=== PATIENT | male | born 1960 | race African-American/Black ===

== ENCOUNTER 2018-11-27 05:26 | Emergency (ER) | payer SELFPAY ==
[~2018-11-27] VITALS: Ht 182.9 cm; Wt 117.9 kg
[~2018-11-27 05:26] MED LIST: NAPR-1009 PO; SULF500T8 PO
--- NOTE | 2018-11-27 05:30 | NUR ---
Pt. ambulated into ED w/ c/o migraine MARLOW since yesterday, denies visual defecits, denies dizziness, sensitivity to light noted, extremity strength equal bilat. - no defecits, denies CP/SOB/F/C/N/V,
--- NOTE | 2018-11-27 05:35 | NUR ---
at bedside for MSE,
[2018-11-27] MEDS ORDERED: SULF500T8 PO (05:36)
[2018-11-27] MEDS ORDERED: METH2.5T PO (05:36)
[2018-11-27] MEDS ORDERED: KETOROLAC TROMETHAMINE 30 MG INJ ONE (05:43)
[2018-11-27] MEDS ORDERED: KETOROLAC TROMETHAMINE 30 MG INJ IM ONE (05:45)
--- NOTE | 2018-11-27 05:49 | NUR ---
Patient discharged to home in stable conditon. Written and verbal after care instructions given. Patient verbalizes understanding of instructions. Pt. d/c w/ prescription per MD order, d/c papers signed, all belongings w/ pt., ID band removed, NAD, ambulated off unit w/ steady gait, NAD,
== END 2018-11-27 05:52 | disposition home or self-care (01) ==
LOC: ER 05:26
DX: R51 Headache (principal); F17.200 Nicotine dependence, unspecified, uncomplicated; Z59.0 Homelessness; Z88.5 Allergy status to narcotic agent; Z79.1 Long term (current) use of non-steroidal anti-inflammatories (NSAID); Z79.899 Other long term (current) drug therapy
CPT/HCPCS: 96372; 99283; J1885; A4663

== ENCOUNTER 2020-06-22 11:55 | Emergency (ER) | payer BC ==
[~2020-06-22] VITALS: Ht 182.9 cm; Wt 115.7 kg
[~2020-06-22 11:55] MED LIST changes: +METH2.5T PO; -NAPR-1009 PO
--- NOTE | 2020-06-22 12:11 | NUR ---
pt is in room #2b. dr larios evaluated the pt.
[2020-06-22 12:55] LABS: BASOPHILS % (AUTO) 0.2 % (0.0-2.0); EOSINOPHILS % (AUTO) 0.6 % (0.0-7.0); HEMATOCRIT 38.5 % (36.7-47.1); HEMOGLOBIN 12.9 g/dL (12.5-16.3); LYMPHOCYTES # (AUTO) 1.4 K/uL (20.0-40.0); LYMPHOCYTES % (AUTO) 19.9 % (20.5-51.5); MEAN CORPUSCULAR HEMOGLOBIN 33.2 uug (23.8-33.4); MEAN CORPUSCULAR HGB CONC 34 g/dL (32.5-36.3); MEAN CORPUSCULAR VOLUME 99.1 fL (73.0-96.2); MONOCYTES # (AUTO) 0.5 K/uL (2.0-10.0); MONOCYTES % (AUTO) 7.1 % (0.0-11.0); NEUTROPHILS # (AUTO) 5.2 K/uL (1.8-8.9); NEUTROPHILS % (AUTO) 72.2 % (38.5-71.5); PLATELET COUNT (AUTO) 225 K/uL (152-348); RED BLOOD CELL COUNT(AUTO) 3.89 MIL/uL (4.06-5.63); WHITE BLOOD COUNT (AUTO) 7.3 K/uL (3.6-10.2)
[2020-06-22 13:05] LABS: CREATININE 1.3 mg/dL (0.6-1.3); POTASSIUM 3.8 mmol/L (3.5-5.1)
[2020-06-22 13:31] LABS: BILIRUBIN,DIRECT 0.1 mg/dL (0.0-0.2); BILIRUBIN,TOTAL 0.4 mg/dL (0.2-1.0); TOTAL PROTEIN, SERUM 7.2 g/dL (6.4-8.2)
--- NOTE | 2020-06-22 14:40 | NUR ---
PT WAS D/C'd TO HOME AFTER DR RANDOLPH RE-EVALUATION. D/C INSTRUCTIONS GIVEN TO THE PT BY DR RANDOLPH.
[2020-06-22 14:41] VITALS: BP 147/88
== END 2020-06-22 14:42 | disposition home or self-care (01) ==
LOC: ER 11:55
DX: R06.00 Dyspnea, unspecified (principal); Z20.828 Contact with and (suspected) exposure to other viral communicable diseases; I70.0 Atherosclerosis of aorta; E66.9 Obesity, unspecified; Z68.34 Body mass index [BMI] 34.0-34.9, adult; M19.90 Unspecified osteoarthritis, unspecified site; R94.31 Abnormal electrocardiogram [ECG] [EKG]
CPT/HCPCS: 36415; 70030-TC; 71045; 85025; 93005; A4663

== ENCOUNTER 2024-05-21 17:26 | Emergency (ER) | payer BC, MEDICARE ==
[~2024-05-21] VITALS: Ht 188 cm; Wt 111.1 kg
[2024-05-21] MEDS ORDERED: PREG50CA PO (17:58)
[2024-05-21] MEDS ORDERED: LORA0.5T48 PO (17:58)
[2024-05-21] MEDS ORDERED: AMLO-212 PO (17:58)
[2024-05-21] MEDS ORDERED: FOLI1TAB27 PO (17:58)
[2024-05-21] MEDS ORDERED: COLC0.6T67 PO (17:58)
[2024-05-21] MEDS ORDERED: ATOR40TA PO (17:58)
[2024-05-21] MEDS: IV NORMAL SALINE 1000 ML BAG IV ONE (18:15)
[2024-05-21 18:19] LABS: BASOPHILS # (AUTO) 0.1 K/UL (0.0-0.2); BASOPHILS % (AUTO) 0.6 % (0.0-2.0); EOSINOPHILS # (AUTO) 0.1 K/uL (0.0-0.7); EOSINOPHILS % (AUTO) 1.5 % (0.0-7.0); HEMATOCRIT 39.7 % (36.7-47.1); HEMOGLOBIN 13.2 g/dL (12.5-16.3); MEAN CORPUSCULAR HEMOGLOBIN 31.6 uug (23.8-33.4); MEAN CORPUSCULAR HGB CONC 33 g/dL (32.5-36.3); MEAN CORPUSCULAR VOLUME 95.4 fL (73.0-96.2); MONOCYTES # (AUTO) 0.8 K/uL (0.1-1.30); MONOCYTES % (AUTO) 8.8 % (0.0-11.0); NEUTROPHILS # (AUTO) 5.7 K/uL (1.8-8.9); NEUTROPHILS % (AUTO) 66.1 % (38.5-71.5); PLATELET COUNT (AUTO) 219 K/uL (152-348); RED BLOOD CELL COUNT(AUTO) 4.16 MIL/uL (4.06-5.63); RED CELL DISTRIBUTION WIDTH 14.2 % (12.1-16.2); WHITE BLOOD COUNT (AUTO) 8.7 K/uL (3.6-10.2)
[2024-05-21 18:20] LABS: *BILIRUBIN,URIN NEGATIVE (NEGATIVE); *BLOOD, URINE NEGATIVE (NEGATIVE); *CLARITY,URINE CLEAR (CLEAR); *COLOR,URINE YELLOW (YELLOW); *KETONES,URINE NEGATIVE (NEGATIVE); *PROTEIN,URINE NEGATIVE (NEGATIVE); *UROBILINOGEN,URINE 0.2 E.U./dl (NORMAL); LEUKOCYTE ESTERASE ,URINE NEGATIVE (NEGATIVE); NITRITE, URINE NEGATIVE (NEGATIVE); UGLUCOSE NEGATIVE (NEGATIVE)
[2024-05-21 18:40] LABS: DIFFERENTIAL COMMENT 1
[2024-05-21 19:04] LABS: ALBUMIN 3.7 g/dL (3.4-5.0); BILIRUBIN,DIRECT 0.2 mg/dL (0.0-0.2); BILIRUBIN,TOTAL 0.5 mg/dL (0.2-1.0); CALCIUM 9.1 mg/dL (8.5-10.1); CREATININE 1.2 mg/dL (0.6-1.3); POTASSIUM 4.1 mmol/L (3.5-5.1); TOTAL PROTEIN, SERUM 7.3 g/dL (6.4-8.2)
[2024-05-21 21:31] VITALS: BP 156/86; TEMP 208.8; O2SAT 97
== END 2024-05-21 21:32 | disposition home or self-care (01) ==
LOC: ER 17:27
DX: S39.011A Strain of muscle, fascia and tendon of abdomen, initial encounter (principal); R07.89 Other chest pain; I31.9 Disease of pericardium, unspecified; R03.0 Elevated blood-pressure reading, without diagnosis of hypertension; G43.909 Migraine, unspecified, not intractable, without status migrainosus; I25.10 Atherosclerotic heart disease of native coronary artery without angina pectoris; F32.A Depression, unspecified; Z79.899 Other long term (current) drug therapy; Z98.890 Other specified postprocedural states; Z60.2 Problems related to living alone; Z88.5 Allergy status to narcotic agent; X58.XXXA Exposure to other specified factors, initial encounter; Y93.89 Activity, other specified; Y92.89 Other specified places as the place of occurrence of the external cause; Y99.8 Other external cause status
CPT/HCPCS: 99285; 74176; 96360; 96361; 71045; 80076; 80048; 81003; 83690; 85025; 85379; 84484 ×2; 36415; 93005; J7040; A4606; A4663

== ENCOUNTER 2024-10-30 21:15 | Emergency (ER) | payer BC, MEDICARE ==
[~2024-10-30] VITALS: Ht 182.9 cm; Wt 113.4 kg
[~2024-10-30 21:15] MED LIST changes: +AMLO-212 PO; +ATOR40TA PO; +COLC0.6T67 PO; +FOLI1TAB27 PO; +LORA0.5T48 PO; +PREG50CA PO
[2024-10-30] MEDS ORDERED: LOSA50TA39 PO (21:26)
[2024-10-30] MEDS ORDERED: CLON0.1T PO (21:54)
[2024-10-30 21:58] VITALS: BP 165/86; O2SAT 97
== END 2024-10-30 21:58 | disposition home or self-care (01) ==
LOC: ER 21:15
DX: I11.9 Hypertensive heart disease without heart failure (principal); F41.9 Anxiety disorder, unspecified; F17.200 Nicotine dependence, unspecified, uncomplicated; I25.10 Atherosclerotic heart disease of native coronary artery without angina pectoris; Z79.899 Other long term (current) drug therapy; Z59.00 Homelessness unspecified; Z60.2 Problems related to living alone; Z88.5 Allergy status to narcotic agent; Z88.7 Allergy status to serum and vaccine
CPT/HCPCS: A4606; A4663

== ENCOUNTER 2025-03-16 05:46 | Inpatient (IN) | payer MEDICARE, BC ==
[~2025-03-16] VITALS: Ht 182.9 cm; Wt 118.9 kg
[~2025-03-16 05:46] MED LIST changes: -AMLO-212 PO; +CLON0.1T PO; +LOSA50TA39 PO
[2025-03-16] MEDS: ASPIRIN 325 MG TABLET PO ONE (06:20)
[2025-03-16] MEDS ORDERED: ASPIRIN 325 MG TABLET ONE (06:20)
[2025-03-16] MEDS ORDERED: METF-440 PO (06:23)
[2025-03-16 06:27] LABS: CREATININE 1.4 mg/dL (0.6-1.3); POTASSIUM 4.2 mmol/L (3.5-5.1)
[2025-03-16 06:29] LABS: BASOPHILS % (AUTO) 0.6 % (0.0-2.0); EOSINOPHILS # (AUTO) 0.1 K/uL (0.0-0.7); EOSINOPHILS % (AUTO) 2.1 % (0.0-7.0); HEMATOCRIT 39.4 % (36.7-47.1); HEMOGLOBIN 13.5 g/dL (12.5-16.3); LYMPHOCYTES # (AUTO) 0.7 K/uL (0.8-4.8); MEAN CORPUSCULAR HEMOGLOBIN 31.9 uug (23.8-33.4); MEAN CORPUSCULAR HGB CONC 34 g/dL (32.5-36.3); MONOCYTES # (AUTO) 1.4 K/uL (0.1-1.30); MONOCYTES % (AUTO) 30.2 % (0.0-11.0); NEUTROPHILS # (AUTO) 2.4 K/uL (1.8-8.9); NEUTROPHILS % (AUTO) 52.1 % (38.5-71.5); PLATELET COUNT (AUTO) 215 K/uL (152-348); RED BLOOD CELL COUNT(AUTO) 4.23 MIL/uL (4.06-5.63); RED CELL DISTRIBUTION WIDTH 13.4 % (12.1-16.2); WHITE BLOOD COUNT (AUTO) 4.6 K/uL (3.6-10.2)
[2025-03-16 06:31] LABS: DIFFERENTIAL COMMENT 1
[2025-03-16 06:39] LABS: ALBUMIN 3.7 g/dL (3.4-5.0); BILIRUBIN,TOTAL 0.6 mg/dL (0.2-1.0); TOTAL PROTEIN, SERUM 7.5 g/dL (6.4-8.2)
[2025-03-16] MEDS ORDERED: METF-494 PO (09:30)
[2025-03-16 10:00] VITALS: BP 149/84; TEMP 97.7; O2SAT 98
[2025-03-16] MEDS ORDERED: LORA0.5T48 PO (10:10)
[2025-03-16] MEDS ORDERED: SULF500T8 PO (10:10)
[2025-03-16] MEDS ORDERED: HYDR25TA86 PO (10:10)
[2025-03-16] MEDS ORDERED: INSULIN REGULAR, HUMAN 1000 UNIT/10 ML VIAL SQ PRN (12:15)
[2025-03-16] MEDS ORDERED: hydrALAZINE HCL 25 MG TABLET PO PRN (12:15)
[2025-03-16] MEDS ORDERED: DEXTROSE 50% 50 ML DISP.SYRIN IV PRN (12:15)
[2025-03-16] MEDS ORDERED: ACETAMINOPHEN 325 MG TABLET PO PRN (12:15)
[2025-03-16] MEDS ORDERED: ONDANSETRON 4 MG/2 ML VIAL IV PRN (12:15)
[2025-03-16] MEDS ORDERED: LORAZEPAM 0.5 MG TABLET PO PRN (12:15)
[2025-03-16] MEDS ORDERED: TEMAZEPAM 15 MG CAPSULE PO PRN (12:15)
[2025-03-16] MEDS: SULFASALAZINE 500 MG TABLET PO SCH (12:52)
[2025-03-16 13:38] LABS: BAND % (MANUAL) 4 % (0-10); EOSINOPHILS % (MANUAL) 1 % (0-8); LYMPHOCYTES % (MANUAL) 13 % (20-40); MONOCYTES % (MANUAL) 32 % (2-10); NEUTROPHILS % (MANUAL) 50 % (42-75); PLATELET ESTIMATE ADEQUATE
[2025-03-16 16:09] VITALS: BP 135/80; TEMP 98.6; O2SAT 98
[2025-03-16] MEDS: BLOOD SUGAR DIAGNOSTIC 1 EACH STRIP VI SCH (16:31)
[2025-03-16] MEDS: LOSARTAN POTASSIUM 50 MG TABLET PO SCH (16:52)
[2025-03-16] MEDS: HYDROCODONE/APAP 5-325MG TABLET PO PRN (17:00)
[2025-03-16 19:45] VITALS: BP 143/86; TEMP 97.9; O2SAT 95
[2025-03-16] MEDS: ATORVASTATIN 40 MG TABLET PO SCH (20:14)
[2025-03-17 00:07] VITALS: BP 143/83; TEMP 97.8; O2SAT 95
[2025-03-17 04:33] VITALS: BP 127/79; TEMP 97.7; O2SAT 97
[2025-03-17] MEDS: PANTOPRAZOLE SODIUM 40 MG TABLET.DR PO SCH (06:06)
[2025-03-17 07:35] LABS: BASOPHILS % (AUTO) 0.4 % (0.0-2.0); EOSINOPHILS # (AUTO) 0.1 K/uL (0.0-0.7); EOSINOPHILS % (AUTO) 2.2 % (0.0-7.0); HEMATOCRIT 40.4 % (36.7-47.1); HEMOGLOBIN 13.8 g/dL (12.5-16.3); LYMPHOCYTES # (AUTO) 1.5 K/uL (0.8-4.8); LYMPHOCYTES % (AUTO) 38.6 % (20.5-51.5); MEAN CORPUSCULAR HGB CONC 34 g/dL (32.5-36.3); MEAN CORPUSCULAR VOLUME 94.1 fL (73.0-96.2); MONOCYTES # (AUTO) 0.7 K/uL (0.1-1.30); NEUTROPHILS # (AUTO) 1.7 K/uL (1.8-8.9); NEUTROPHILS % (AUTO) 41.8 % (38.5-71.5); PLATELET COUNT (AUTO) 223 K/uL (152-348); RED CELL DISTRIBUTION WIDTH 13.7 % (12.1-16.2)
[2025-03-17 07:42] VITALS: BP 126/78; TEMP 97.8; O2SAT 97
[2025-03-17 07:58] LABS: THYROID STIMULATING HORMONE 1.266 mIU/mL (0.358-3.740)
[2025-03-17 08:03] LABS: ALBUMIN 3.6 g/dL (3.4-5.0); BILIRUBIN,TOTAL 0.6 mg/dL (0.2-1.0); CALCIUM 8.8 mg/dL (8.5-10.1); CREATININE 1.3 mg/dL (0.6-1.3); PHOSPHOROUS 3.9 mg/dL (2.5-4.9); POTASSIUM 4.4 mmol/L (3.5-5.1); TOTAL PROTEIN, SERUM 7.3 g/dL (6.4-8.2)
[2025-03-17 08:11] LABS: *BILIRUBIN,URIN NEGATIVE (NEGATIVE); *BLOOD, URINE NEGATIVE (NEGATIVE); *CLARITY,URINE CLEAR (CLEAR); *COLOR,URINE YELLOW (YELLOW); *KETONES,URINE NEGATIVE (NEGATIVE); *PROTEIN,URINE NEGATIVE (NEGATIVE); *UROBILINOGEN,URINE 0.2 E.U./dl (NORMAL); LEUKOCYTE ESTERASE ,URINE NEGATIVE (NEGATIVE); NITRITE, URINE NEGATIVE (NEGATIVE); PH,URINE 6.5 (5.0-8.0); UGLUCOSE NEGATIVE (NEGATIVE)
[2025-03-17] MEDS: FOLIC ACID 1 MG TABLET PO SCH (08:11)
[2025-03-17 08:30] LABS: *CREATININE,URINE 119.7 mg/dL (30-125)
[2025-03-17 10:07] LABS: EOSINOPHILS % (MANUAL) 2 % (0-8); LYMPHOCYTES % (MANUAL) 39 % (20-40); MONOCYTES % (MANUAL) 17 % (2-10); NEUTROPHILS % (MANUAL) 42 % (42-75); PLATELET ESTIMATE ADEQUATE
[2025-03-17 11:53] VITALS: BP 130/78; TEMP 98.2; O2SAT 96
[2025-03-18 07:11] LABS: PTH, INTACT 15 pg/mL (15-65)
[2025-03-19] MEDS ORDERED: METHOTREXATE SODIUM 2.5 MG TABLET PO SCH (09:00)
[2025-03-21 12:09] LABS: ALBUMIN 3.6 g/dL (2.9-4.4); ALPHA-1-GLOBULIN 0.2 g/dL (0.0-0.4); ALPHA-2-GLOBULIN 0.8 g/dL (0.4-1.0); BETA GLOBULIN 1.2 g/dL (0.7-1.3); GAMMA GLOBULIN 1.3 g/dL (0.4-1.8); GLOBULIN, TOTAL 3.5 g/dL (2.2-3.9); M-SPIKE Not Observed g/dL (Not Observed); PROTEIN, TOTAL 7.1 g/dL (6.0-8.5)
== END 2025-03-17 14:15 | disposition home or self-care (01) | DRG 205 ==
LOC: ER 05:58 → TELE3 09:10
PROVIDERS: ADMIT Internal Medicine; ATTEND Internal Medicine
DX: M94.0 Chondrocostal junction syndrome [Tietze] (principal); N17.0 Acute kidney failure with tubular necrosis; M06.9 Rheumatoid arthritis, unspecified; E78.5 Hyperlipidemia, unspecified; E66.9 Obesity, unspecified; Z68.35 Body mass index [BMI] 35.0-35.9, adult; R73.03 Prediabetes; G43.909 Migraine, unspecified, not intractable, without status migrainosus; I10 Essential (primary) hypertension; I25.10 Atherosclerotic heart disease of native coronary artery without angina pectoris; F41.9 Anxiety disorder, unspecified; Z88.5 Allergy status to narcotic agent; Z79.84 Long term (current) use of oral hypoglycemic drugs; F32.A Depression, unspecified
CPT/HCPCS: 36415; 71045; 76770; 83735; 83970; 84100; 84155; 84165; 84300; 84443; 84484; 85025; 93307; A4606; A4663; G0378; J1815

== ENCOUNTER 2025-05-04 00:32 | Emergency (ER) | payer BC, MEDICARE ==
[~2025-05-04] VITALS: Ht 185.4 cm; Wt 115.7 kg
[~2025-05-04 00:32] MED LIST changes: -CLON0.1T PO; -COLC0.6T67 PO; +HYDR25TA86 PO; +METF-494 PO; -PREG50CA PO
[2025-05-04 01:14] LABS: PLATELET COUNT (AUTO) 233 K/uL (152-348); RED BLOOD CELL COUNT(AUTO) 3.97 MIL/uL (4.06-5.63); RED CELL DISTRIBUTION WIDTH 13.3 % (12.1-16.2); WHITE BLOOD COUNT (AUTO) 6.2 K/uL (3.6-10.2)
[2025-05-04 01:32] LABS: CREATININE 1.4 mg/dL (0.6-1.3); SODIUM SERUM 140.0 mmol/L (136-145); UREA NITROGEN, BLOOD 17.0 mg/dL (7-18)
[2025-05-04 01:37] LABS: ASPARTATE AMINOTRANSFERASE 19.0 U/L (15-37); TOTAL PROTEIN, SERUM 7.4 g/dL (6.4-8.2)
[2025-05-04] MEDS ORDERED: HYDROMORPHONE 1 MG/1 ML DISP.SYRIN ONE ×2 (01:37→02:57)
[2025-05-04] MEDS ORDERED: ONDANSETRON 4 MG/2 ML VIAL ONE (01:37)
[2025-05-04] MEDS: ONDANSETRON 4 MG/2 ML VIAL IV ONE (01:42)
[2025-05-04] MEDS: HYDROMORPHONE 1 MG/1 ML DISP.SYRIN IV ONE ×2 (01:43→03:04)
[2025-05-04] MEDS ORDERED: SWABABLE VALVE TRANSFER SET EA MC ONE (01:55)
[2025-05-04] MEDS ORDERED: IV NORMAL SALINE 250 ML IV ONE (01:55)
[2025-05-04] MEDS ORDERED: IOHEXOL 350 100 ML INFUS..BTL ONE (01:55)
[2025-05-04] MEDS ORDERED: ONDA4TAB11 PO (03:00)
[2025-05-04] MEDS ORDERED: HYDR-3980 PO (03:00)
[2025-05-04 03:09] LABS: *BILIRUBIN,URIN NEGATIVE (NEGATIVE); *BLOOD, URINE NEGATIVE (NEGATIVE); *CLARITY,URINE CLEAR (CLEAR); *COLOR,URINE YELLOW (YELLOW); *KETONES,URINE NEGATIVE (NEGATIVE); *PROTEIN,URINE NEGATIVE (NEGATIVE); *UROBILINOGEN,URINE 0.2 E.U./dl (NORMAL); LEUKOCYTE ESTERASE ,URINE NEGATIVE (NEGATIVE); NITRITE, URINE NEGATIVE (NEGATIVE); UGLUCOSE NEGATIVE (NEGATIVE)
[2025-05-04 04:38] VITALS: BP 136/8; O2SAT 99
== END 2025-05-04 04:45 | disposition home or self-care (01) ==
LOC: ER 00:42
DX: M54.50 Low back pain, unspecified (principal); R94.31 Abnormal electrocardiogram [ECG] [EKG]; F41.9 Anxiety disorder, unspecified; M19.90 Unspecified osteoarthritis, unspecified site; F32.A Depression, unspecified; G43.909 Migraine, unspecified, not intractable, without status migrainosus; Z79.84 Long term (current) use of oral hypoglycemic drugs; Z79.899 Other long term (current) drug therapy; Z88.5 Allergy status to narcotic agent; Z88.7 Allergy status to serum and vaccine; Z86.79 Personal history of other diseases of the circulatory system; Z87.19 Personal history of other diseases of the digestive system; Z60.2 Problems related to living alone
CPT/HCPCS: 99285; 74174; 96374; 96375; 80076; 80048; 81003; 83690; 85025; 84484 ×2; 36415; 93005; 96376; J2405; Q9967; J1171 ×2; A4606; A4663